=== PATIENT | male | born 1985 | race Caucasian/White ===

== ENCOUNTER 2017-10-20 21:18 | Emergency (ER) | payer OTHER ==
[~2017-10-20] VITALS: Ht 182.9 cm; Wt 123.0 kg
[~2017-10-20 21:18] MED LIST: ALBUAER19 INH; CALC500C3 PO; FLX10 PO; PRLSR20 PO; SERT-234 PO; SYMIN/8045 INH; TOPI50TA25 PO
[2017-10-20 21:28] VITALS: TEMP 36.8; Ht 182.9 cm; Wt 123.0 kg
[2017-10-20] MEDS ORDERED: ONDANSETRON INJ 2 MG/ML 2 ML VIAL IV STA (22:10)
[2017-10-20] MEDS ORDERED: SODIUM CHLORIDE 0.9% 1000ML 2,000 ML IV STA (22:10)
[2017-10-20] MEDS ORDERED: KETOROLAC TROMETHAMINE 30 MG/ML VIAL IV STA (22:11)
[2017-10-20] MEDS ORDERED: OPTIRAY 320 IV PRN (22:15)
[2017-10-20 22:19] LABS: BASO % 0.3 %; BASO ABS # 0.04 K/uL (0-0.2); EOS % 0.6 %; EOS ABS # 0.08 K/uL (0-0.5); HEMATOCRIT 45.2 % (42-52); IG# 0.12 K/uL (0.00-0.02); LYMPH % 13.8 %; LYMPH ABS # 1.77 K/uL (1.2-3.4); MEAN CELL VOLUME 85.3 fL (80-100); MEAN CORPUSCULAR HEMOGLOBIN 30.2 pg (25-34); MEAN CORPUSCULAR HGB CONC 35.4 g/dl (32-36); MEAN PLATELET VOLUME 9.3 fL (7.4-10.4); MONO ABS # 0.51 K/uL (0.11-0.59); NEUT % 80.4 %; PLATELET COUNT 286 K/uL (130-400); RED CELL DISTRIBUTION WIDTH CV 13.1 % (11.5-14.5); RED CELL DISTRIBUTION WIDTH SD 40.5 fL (36.4-46.3); WHITE BLOOD COUNT 12.82 K/uL (4.8-10.8)
[2017-10-20 22:39] LABS: ALBUMIN 4.4 gm/dl (3.4-5.0); ALT/SGPT 42 U/L (12-78); BLOOD UREA NITROGEN 9 mg/dl (7-18); CALCIUM 9.9 mg/dl (8.5-10.1); CARBON DIOXIDE 23 mmol/L (21-32); CREATININE 1.16 mg/dl (0.60-1.40); GLUCOSE 108 mg/dl (70-99); LIPASE 80 U/L (73-393); POTASSIUM 4.4 mmol/L (3.5-5.1); SODIUM 136 mmol/L (136-145)
[2017-10-20 22:42] LABS: ALKALINE PHOSPHATASE 80 U/L (45-117); AST/SGOT 19 U/L (15-37); TOTAL PROTEIN 8.4 gm/dl (6.4-8.2)
[2017-10-20] MEDS ORDERED: ONDANSETRON HOME PACK 4MG OD TAB PO ONE (23:45)
[2017-10-20 23:50] VITALS: BP 141/76; PULSE 75; O2SAT 98
--- NOTE | 2017-10-21 03:03 | EMERGENCY ROOM VISIT NOTE ---
History First contact with patient: 22:01 Chief Complaint: ABDOMINAL PAIN Stated Complaint: ABDOMINAL PAIN, VOMITING Nursing Triage Summary: Patient c/o abdominal pain, constipation and vomitting since Thursday. Pain increasing today. History of Present Illness The patient is a 32 year old male who presents to the Emergency Room with complaints of nausea, vomiting and right lower quadrant pain for the past few days. Describes the pain as discomfort, ranging in severity 6 out of 10. Nothing makes it better or worse. It does not radiate. He has had prior abdominal hernia surgery before. Patient denies chest pain, dyspnea, fever, chills, cough, congestion, back pain, urinary symptoms. Review of Systems An 10 system review of systems was completed with positives and pertinent negatives listed in the HPI. Past Medical/Surgical History Kidney stones, hernia surgery, PTSD, anxiety, depression Social History Smoking Status: Former Smoker Alcohol Use: none Drug Use: none Occupation Status: employed Current/Historical Medications Scheduled Budesonide/Formoterol Fumarate (Symbicort 80/4.5 Inhaler), 2 PUFFS INH BID Calcium Carbonate (Tums), 1-2 TAB PO DIRECTED Omeprazole (Prilosec), 20 MG PO QAM Sertraline (Zoloft), 150 MG PO QAM Topiramate (Topiramate), 50 MG PO QAM Scheduled PRN Albuterol Inhaler (Ventolin Inhaler), 2 PUFFS INH QID PRN for Shortness of Breath Cyclobenzaprine HCl (Cyclobenzaprine HCl), 10 MG PO TID PRN for BACK PAIN Physical Exam Vital Signs Date Time Temp Pulse Resp B/P (MAP) Pulse Ox O2 Delivery O2 Flow Rate FiO2 10/20/17 23:50 75 16 141/76 98 10/20/17 21:28 36.8 77 16 171/95 98 Room Air Physical Exam VITALS: Vitals are noted on the nurse's note and reviewed by myself. Vital signs stable. GENERAL: Pleasant male, in no acute distress, nondiaphoretic, well-developed well-nourished. SKIN: Capillary reflex less than 2 seconds. HEENT: Normocephalic. PERRLA. EOMI. Nares patent. Mucous membranes moist. Neck is supple without nuchal rigidity. HEART: Regular rate and rhythm without murmurs gallops or rubs. LUNGS: Clear to auscultation bilaterally without wheezes, rales or rhonchi. No retractions or accessory muscle use. ABDOMEN: Positive bowel sounds x 4. Normal tympanic percussion. Soft, tender to palpation lower abdomen, no CVA tenderness, without masses or organomegaly. Rice sign negative. No guarding or rebound tenderness. MUSCULOSKELETAL: No gross musculoskeletal defects. NEURO: Patient was alert and oriented to person place and time. Normal sensation to light and sharp touch. No focal neurological deficits. Medical Decision & Procedures Laboratory Results 10/20/17 20:10 Red Blood Count 5.30, Mean Corpuscular Volume 85.3, Mean Corpuscular Hemoglobin 30.2, Mean Corpuscular Hemoglobin Concent 35.4, Mean Platelet Volume 9.3, Neutrophils (%) (Auto) 80.4, Lymphocytes (%) (Auto) 13.8, Monocytes (%) (Auto) 4.0, Eosinophils (%) (Auto) 0.6, Basophils (%) (Auto) 0.3, Neutrophils # (Auto) 10.30, Lymphocytes # (Auto) 1.77, Monocytes # (Auto) 0.51, Eosinophils # (Auto) 0.08, Basophils # (Auto) 0.04 10/20/17 20:10 Test 10/20/17 20:10 10/20/17 22:10 White Blood Count 12.82 K/uL (4.8-10.8) Red Blood Count 5.30 M/uL (4.7-6.1) Hemoglobin 16.0 g/dL (14.0-18.0) Hematocrit 45.2 % (42-52) Mean Corpuscular Volume 85.3 fL (80-100) Mean Corpuscular Hemoglobin 30.2 pg (25-34) Mean Corpuscular Hemoglobin Concent 35.4 g/dl (32-36) Platelet Count 286 K/uL (130-400) Mean Platelet Volume 9.3 fL (7.4-10.4) Neutrophils (%) (Auto) 80.4 % Lymphocytes (%) (Auto) 13.8 % Monocytes (%) (Auto) 4.0 % Eosinophils (%) (Auto) 0.6 % Basophils (%) (Auto) 0.3 % Neutrophils # (Auto) 10.30 K/uL (1.4-6.5) Lymphocytes # (Auto) 1.77 K/uL (1.2-3.4) Monocytes # (Auto) 0.51 K/uL (0.11-0.59) Eosinophils # (Auto) 0.08 K/uL (0-0.5) Basophils # (Auto) 0.04 K/uL (0-0.2) RDW Standard Deviation 40.5 fL (36.4-46.3) RDW Coefficient of Variation 13.1 % (11.5-14.5) Immature Granulocyte % (Auto) 0.9 % Immature Granulocyte # (Auto) 0.12 K/uL (0.00-0.02) Anion Gap 8.0 mmol/L (3-11) Est Creatinine Clear Calc Drug Dose 123.8 ml/min Estimated GFR () 96.0 Estimated GFR (Non- 82.9 BUN/Creatinine Ratio 8.0 (10-20) Calcium Level 9.9 mg/dl (8.5-10.1) Total Bilirubin 0.3 mg/dl (0.2-1) Direct Bilirubin < 0.1 mg/dl (0-0.2) Aspartate Amino Transf (AST/SGOT) 19 U/L (15-37) Alanine Aminotransferase (ALT/SGPT) 42 U/L (12-78) Alkaline Phosphatase 80 U/L (45-117) Total Protein 8.4 gm/dl (6.4-8.2) Albumin 4.4 gm/dl (3.4-5.0) Lipase 80 U/L (73-393) Urine Color YELLOW Urine Appearance CLEAR (CLEAR) Urine pH 7.0 (4.5-7.5) Urine Specific [place] 1.016 (1.000-1.030) Urine Protein NEG (NEG) Urine Glucose (UA) NEG (NEG) Urine Ketones NEG (NEG) Urine Occult Blood NEG (NEG) Urine Nitrite NEG (NEG) Urine Bilirubin NEG (NEG) Urine Urobilinogen NEG (NEG) Urine Leukocyte Esterase NEG (NEG) Urine WBC (Auto) 0 /hpf (0-5) Urine RBC (Auto) 0-4 /hpf (0-4) Urine Hyaline Casts (Auto) 0 /lpf (0-5) Urine Epithelial Cells (Auto) 0-5 /lpf (0-5) Urine Bacteria (Auto) NEG (NEG) Medications Administered Medications (Trade) Dose Ordered Sig/Gianna Route Start Time Stop Time Status Last Admin Dose Admin Sodium Chloride 2,000 ml @ 999 mls/hr Q2H1M STAT IV 10/20/17 22:10 10/21/17 00:10 DC 10/20/17 22:15 999 MLS/HR Ondansetron HCl (Zofran Inj) 4 mg NOW STAT IV 10/20/17 22:10 10/20/17 22:11 DC 10/20/17 22:15 4 MG Ketorolac Tromethamine (Toradol Inj) 15 mg NOW STAT IV 10/20/17 22:11 10/20/17 22:12 DC 10/20/17 22:15 15 MG Ondansetron HCl (ZOFRAN ODT 4MG Home Pack) 1 homepack UD ONCE PO 10/20/17 23:45 10/20/17 23:46 DC 10/20/17 23:47 1 HOMEPACK ED Course Prior records/ancillary studies reviewed. Triage Nursing notes reviewed. The patient's history was concerning for abdominal pain. Differential diagnosis: Etiologies such as appendicitis, diverticulitis, PUD, biliary pathology, UTI, pancreatitis, obstruction, mesenteric ischemia, aortic pathology, infections, inflammatory bowel disease, renal colic, as well as others were entertained. Physical examination findings: As above. ER treatment provided: IV fluids, Toradol, Zofran On reassessment the patient felt better. Diagnostics interpreted by me: The labs revealed stable H&H. No worrisome electrolyte abnormality. Mild leukocytosis Imaging studies: CT the abdomen and pelvis negative for appendicitis per stat radiology Exam and history seem consistent with nausea and vomiting with lower abdominal pain. Patient felt better after being medicated as above. No acute findings on CT imaging. Patient is advised to rest, stay well hydrated, do a bland diet and follow-up with family care in a few days here in the ER sooner for abdominal pain, fevers, vomiting, worsening signs or symptoms or as needed. By the evaluation outlined above emergent etiologies such as appendicitis, diverticulitis, PUD, biliary pathology, UTI, pancreatitis, obstruction, mesenteric ischemia, aortic pathology, infections, inflammatory bowel disease, renal colic, as well as others were deemed relatively unlikely. The pt informed about the findings as listed above. All questions were answered and pleased with the treatment. Return instructions were outlined and the patient was discharged in stable condition. Referral: The patient was referred back to their primary care physician for follow-up in 2 to 3 days for a recheck of the current condition. Case reviewed with my attending The chart was completed utilizing [employer] Speech voice recognition software. Grammatical errors, random word insertions, pronoun errors, and incomplete sentences are an occassional consequence of this system due to software limitations, ambient noise, and hardware issues. Any formal questions or concerns about the content, text, or information contained within the body of this dictation should be directly addressed to the physician hardware sales assistant for clarification. Medical Decision As above Medication Reconcilliation Current Medication List: was personally reviewed by me Blood Pressure Screening Patient's blood pressure: Elevated blood pressure Blood pressure disposition: Elevated BP felt to be situational Impression Primary Impression: Nausea & vomiting Additional Impression: Lower abdominal pain Departure Information Dispostion Home / Self-Care Condition GOOD Forms Call Back Authorization, HOME CARE DOCUMENTATION FORM, Work Instructions, Return To Work: 2 days IMPORTANT VISIT INFORMATION Patient Instructions Vomiting - [facility], [facility] Additional Instructions DO NOT drive, drink alcohol, operate machinery, or perform dangerous activities today. You were given medications in the ER that can affect your ability to safely function or operate a vehicle. Zofran(odansetron) tablets 4mg: Take one and allow it to dissolve in your mouth every four to six hours as needed for nausea or vomiting. Ibuprofen(Motrin, Advil) may be used for fever or pain. Use 600mg every six hours as needed. Take with food. Avoid using more than 2400mg in a 24 hour period. Do not use 2400mg per day for more than three consecutive days without physician direction. Prolonged inappropriate use can lead to stomach upset or ulcers. (AND/OR) Acetaminophen(Tylenol) may be used for fever or pain. Use 1000mg every six hours as needed. Avoid using more than 4000mg in a 24 hour period. Rest and drink plenty of fluids as tolerated. Slow sips of water or sports drinks are recommended instead of large amounts all at once. Continue current medications. Once your stomach is settled start with a clear liquid diet (jello, soup broth, etc.) and then advance as tolerated. You should avoid full, heavy meals for about 24 hrs from the time your symptoms resolved. Return to the ER for persistent vomiting, fevers, abdominal pain, chest pains, difficulty breathing, black or bloody stools, worsening of your condition, or as needed. Follow up with your primary physician in 2-3 days for a recheck of your current condition. Work Instructions Return To Work: 2 days Problem Qualifiers Primary Impression: Nausea & vomiting Vomiting type: unspecified Vomiting Intractability: non-intractable Qualified Codes: R11.2 - Nausea with vomiting, unspecified
--- NOTE | 2017-10-21 07:15 | DIAGNOSTIC IMAGING REPORT ---
ABD/PELVIS IV CONTRAST ONLY CLINICAL HISTORY: 32 years-old Male presenting with RLQ pain. TECHNIQUE: Multidetector CT of the abdomen and pelvis was performed after the administration of intravenous contrast. IV contrast: 115 mL of Optiray 320. A dose lowering technique was used consistent with the principles of ALARA (as low as reasonably achievable). COMPARISON: 03/23/2014. CT DOSE (mGy.cm): The estimated cumulative dose is 1152.22 mGy.cm. FINDINGS: Flooring Salesperson topogram: Unremarkable. Lung bases: Mild mosaic attenuation could suggest small airways disease. Normal heart size. No pericardial or pleural effusion. Liver: Normal morphology. No liver lesion. Patent hepatic vasculature. Biliary: No intrahepatic or extrahepatic biliary ductal dilatation. Normal gallbladder. Pancreas: Normal. Spleen: Normal. Adrenal glands: Normal. Kidneys and ureters: Nonobstructing punctate right renal calculi. Nonobstructing punctate left renal calculus also noted. Normal renal parenchyma. No hydronephrosis. Ureters normal. Bladder: Bladder wall thickening circumferentially suggested though the bladder is incompletely distended. Pelvic organs: Prostate and seminal vesicles normal. Bowel: Normal appendix. No bowel obstruction. Small hiatal hernia. Peritoneal cavity: No free fluid or intraperitoneal gas. Lymph nodes: No enlarged lymph nodes in the abdomen or pelvis. Vasculature: Aorta and IVC patent and normal in caliber. Abdominal wall: Normal. Musculoskeletal: Normal. IMPRESSION: 1. Bilateral nephrolithiasis. No obstructing calculus. No hydronephrosis. 2. Circumferential bladder wall thickening suggested though the bladder is incompletely distended. Correlate with urinalysis to exclude cystitis. The report will be called/faxed according to standard departmental protocol. Electronically signed by: Pranay Vargas M.D. 10/21/2017 7:13 AM Dictated Date/Time: 10/21/2017 7:08 AM
== END 2017-10-20 23:51 | disposition home or self-care (01) ==
LOC: C.EDB 21:19 → C.EDC 23:51
DX: R11.2 Nausea with vomiting, unspecified (principal); R10.31 Right lower quadrant pain; Z87.442 Personal history of urinary calculi; F43.10 Post-traumatic stress disorder, unspecified; F41.9 Anxiety disorder, unspecified; F32.9 Major depressive disorder, single episode, unspecified; Z87.891 Personal history of nicotine dependence; Z79.899 Other long term (current) drug therapy